=== PATIENT | male | born 1955 | race Caucasian/White ===

== ENCOUNTER → 2020-04-11 | Outpatient (CLI) | payer OTHER ==
[~2020-04-11] MED LIST: DOXYCYCLINE HY100 MG PO; PREDNISONE 20 M20 MG PO; PREDNISONE 50 M50 MG PO; PREDNISONE20 MG PO; TESSALON PERLE100 MG PO; VIBRAMYCIN100 MG PO; ZOFRAN ODT 4 MG4 MG PO
== END ==
LOC: HEART 5 10:30
DX: J44.9 Chronic obstructive pulmonary disease, unspecified (principal); R94.2 Abnormal results of pulmonary function studies
CPT/HCPCS: 94010; 94729

== ENCOUNTER → 2020-04-13 | Outpatient (CLI) | payer OTHER | LOC: LAB 13:16 | DX: R09.02 Hypoxemia (principal) | CPT/HCPCS: 36415; 36600; 82803 ==